=== PATIENT | female | born 1995 | race African-American/Black ===

== ENCOUNTER 2019-01-10 23:25 | Observation (INO) | payer SELFPAY ==
[2019-01-11 00:33] LABS: Hemoglobin 10.2 g/dL (12.0-16.0); Mean Corpuscular HGB CONC 32.1 g/dL (32.0-36.0); Mean Corpuscular Hemoglobin 22.3 pg (27.0-31.0); Mean Corpuscular Volume 69.4 fL (78.0-98.0); Mean Platelet Volume 9.9 fL (7.4-10.4); Platelet Count 301 thou/uL (130-400); RBC Distribution Width 15.3 % (11.5-14.5); Red Blood Cell (RBC) Count 4.56 mill/uL (4.20-5.40); White Blood Cell (WBC) Count 18.5 thou/uL (4.8-10.8)
[2019-01-11] MEDS ORDERED: Acetaminophen 500 MG TAB ONE (00:44)
[2019-01-11 00:49] LABS: Lymphocytes 6 % (21-51); MDiff Complete? YES; Microcytosis SLIGHT = 6-15 cells (100X) (0-5/hpf); Monocytes 5 % (0-10); Neutrophil 89 % (42-75)
[2019-01-11 00:52] LABS: ALT (SGPT) 12 U/L (8-55); AST (SGOT) 13 U/L (5-34); Albumin 3.6 g/dL (3.5-5.0); Alkaline Phosphatase 89 U/L (40-150); Anion Gap 9 mmol/L (10-20); BUN (Urea Nitrogen) 7 mg/dL (7.0-18.7); Bilirubin, Total 0.5 mg/dL (0.2-1.2); Calc. Creatinine Clearance 0 mL/min (70-130); Calcium 9.2 mg/dL (7.8-10.44); Carbon Dioxide 28 mmol/L (22-29); Chloride 106 mmol/L (98-107); Estimated GFR-MDRD Greater than 90; Globulin 4.2 g/dL (2.4-3.5); Glucose 144 mg/dL (70-105); Lipase 9 U/L (8-78); Potassium 3.8 mmol/L (3.5-5.1); Protein, Total 7.8 g/dL (6.0-8.3); Sodium 139 mmol/L (136-145)
[2019-01-11] MEDS ORDERED: Ondansetron PF 4 MG/2 ML Vial ONE (00:53)
[2019-01-11] MEDS ORDERED: Morphine 4 MG/ML VIAL ONE (00:53)
[2019-01-11 01:18] LABS: BHCG - Serum Negative (NEGATIVE); Pregs Control Background? CLEAR/WHITE (CLR/WHITE); Pregs Control Bar Appear? YES (CONTROL BAR)
[2019-01-11] MEDS ORDERED: Sodium Chloride 0.9% 100 ML ONE (03:14)
[2019-01-11] MEDS ORDERED: Piperacillin/Tazobactam 4.5 GM VIAL ONE (03:14)
[2019-01-11 04:02] LABS: Bilirubin Negative (Negative); Blood, Urine Trace (Negative); Clarity CLOUDY (Clear); Glucose, Urine (Dipstick) Negative (Negative); Leukocyte Large (Negative); Nitrite Positive (Negative); Protein, Urine (Dipstick) Negative (Neg-Trace); pH, Urine 5.5 (5.0-9.0)
[2019-01-11 04:05] LABS: Bacteria/HPF 4+ HPF (None Seen); Pathc Cast-AUWi Flag 0.95 (0-2.49)
[2019-01-11 04:06] LABS: Yeast-AUWi Flag 42.3 (0-25.0)
[2019-01-11 04:08] LABS: Specific Gravity, Urine 1.054 (1.002-1.036)
[2019-01-11 04:12] LABS: Hyaline Casts/LPF NONE SEEN LPF (0-3 Hyaline); Yeast-All Forms None Seen HPF (None Seen)
[2019-01-11] MEDS ORDERED: Ondansetron ODT 4 MG TAB SL PRN (04:15)
[2019-01-11] MEDS ORDERED: Morphine 4 MG/ML VIAL SLOW IVP PRN (04:15)
[2019-01-11] MEDS ORDERED: Ondansetron PF 4 MG/2 ML Vial IVP PRN (04:15)
[2019-01-11 04:23] VITALS: BMI 41.1
[2019-01-11] MEDS: Lactated Ringer's 1,000 ML IV SCH ×2 (04:58→12:17)
[2019-01-11] MEDS ORDERED: Morphine 2 MG/ML SYRINGE SLOW IVP PRN (07:32)
--- NOTE | 2019-01-11 08:35 | ULT ---
Sonogram right upper quadrant HISTORY: Right upper quadrant pain. FINDINGS: Gallbladder has a normal appearance. Common bile duct is 0.5 cm. Liver unremarkable without focal mass or intrahepatic biliary dilatation. No free fluid. IMPRESSION: Normal right upper quadrant sonogram.
[2019-01-11] MEDS: Pantoprazole 40 MG VIAL IVP SCH (08:39)
--- NOTE | 2019-01-11 08:41 | CT ---
PRELIMINARY REPORT/[facility]/EMERGENCY AFTER HOURS PROCEDURE EXAM: CT Abdomen and Pelvis With Contrast EXAM DATE/TIME: 01/11/2019 1:30 AM CLINICAL HISTORY: 23 years old, female; Abdominal pain; Patient HX: F23 presents to ED C/O constant abd pain x2 days. P T describes pain as sharp. PT reports constipation. PT denies similar symptoms. PT denies HX of UTI, reports pressure in abd when she urinates. Lmp approximately December 19, 2018. PT reports gestati onal diabetes while , . PT reports untreated hyperglycemia. PT reports she still has her gall bladder. TECHNIQUE: Imaging protocol: Axial computed tomography images of the abdomen and pelvis with intravenous contras t. Coronal reformatted images were created and reviewed. COMPARISON: No relevant prior studies available. FINDINGS: Lungs: The lung bases are clear. ABDOMEN: Liver: Unremarkable. Gallbladder and bile ducts: No definite gallbladder abnormality by CT. No biliary tree dilation. Pancreas: Unremarkable. Spleen: Unremarkable. Adrenals: Unremarkable. Kidneys and ureters: Unremarkable. Stomach and bowel: There are no CT findings to strongly suggest diverticulitis or colitis. Appendix: The appendix is borderline to mildly prominent in size with diameter of up to 6-7 mm. Possible mild thickening of the appendiceal wall. However, there are no significant surrounding inflammatory changes to definitely allow diagnosis of appendicitis at this time. Clinical correlation is needed in this case. If clinical findings are equi vocal, and appendicitis remains in the differential diagnosis, follow-up scanning may be useful, as clinical ly directed. Appropriate clinical follow up warranted, as early/mild appendicitis is not excluded, and could be possible with this CT appearance. PELVIS: Bladder: Unremarkable as visualized. Reproductive: An IUD is present within the uterus. The IUD appears malpositioned, lie in lower uterine segment rather than the fundus of the uterus. The stem of the IUD probably extends into the cervical canal. The left ovary contains a 17-18 mm dominant follicle versus very small cyst. Significance uncertain/unlikely due to small size. No cul-de-sac fluid. ABDOMEN and PELVIS: Intraperitoneal space: No free air, ascites, or bowel distention. Bones/joints: No significant acute finding. Soft tissues: No significant acute finding. Vasculature: No evidence for abdominal aortic aneurysm. Lymph nodes: No retroperitoneal adenopathy. Several borderline to mildly prominent inguinal lymph nodes bilaterally. IMPRESSION: 1. No free air or bowel distention. 2. Borderline size of the appendix, please see detailed discussion above. 3. An IUD is present. The IUD appears malpositioned, see above discussion. 4. The left ovary contains a 17-18 mm dominant follicle versus very small cyst. Significance uncertain/unlikely due to small size. No cul-de-sac fluid. 5. Other findings discussed above. Thank you for allowing us to participate in the care of your patient. Dictated and Authenticated by: Hudson Pappas MD 01/11/2019 2:43 AM Central Time ([place] & [place]) FINAL REPORT CT ABDOMEN AND PELVIS WITH CONTRAST: Date: 01/11/19 HISTORY: Abdominal pain. COMPARISON: None. FINDINGS: Lung bases are clear. No pericardial effusion. The intrauterine device is low. The appendix is upper limits of normal in size, measuring up to 6 mm, without periappendiceal inflammation. There are mildly distended loops of distal small bowel. IMPRESSION: Findings and impression are concordant with the preliminary report. Close clinical follow-up recommen ded.
[2019-01-11 08:53] LABS: #Lymphocytes 2.3 thou/uL (1.20-3.40); #Monocytes 1.1 thou/uL (0.11-0.59); #Neutrophils 12.6 thou/uL (1.40-6.50); %Eosinophils 0.2 % (0.0-10.0); %Lymphocytes 14.6 % (21.0-51.0); %Monocytes 6.7 % (0.0-10.0); %Neutrophils 78.5 % (42.0-75.0); Hemoglobin 9.3 g/dL (12.0-16.0); Mean Corpuscular HGB CONC 31.6 g/dL (32.0-36.0); Mean Corpuscular Hemoglobin 22.3 pg (27.0-31.0); Mean Corpuscular Volume 70.6 fL (78.0-98.0); Platelet Count 279 thou/uL (130-400); RBC Distribution Width 15.3 % (11.5-14.5); Red Blood Cell (RBC) Count 4.19 mill/uL (4.20-5.40)
[2019-01-11 09:21] LABS: Anion Gap 11 mmol/L (10-20); BUN (Urea Nitrogen) 6 mg/dL (7.0-18.7); Calc. Creatinine Clearance 209 mL/min (70-130); Calcium 8.9 mg/dL (7.8-10.44); Carbon Dioxide 25 mmol/L (22-29); Chloride 108 mmol/L (98-107); Estimated GFR-MDRD Greater than 90; Glucose 87 mg/dL (70-105); Potassium 3.5 mmol/L (3.5-5.1); Sodium 140 mmol/L (136-145)
[2019-01-11 11:51] LABS: Hemoglobin A1c 6.5 % (4.0-6.0)
--- NOTE | 2019-01-11 11:51 | HP ---
CHIEF COMPLAINT: Epigastric and right upper quadrant pain. HISTORY OF PRESENT ILLNESS: This is a 23-year-old female with a 3-day history of mid epigastric pain. No radiation. No nausea or vomiting. Subjective fevers. Last bowel movement yesterday. Last menstrual period December 19. No radiation of pain. She is a G3, P3. Her last child was delivered January of 2017. PAST MEDICAL HISTORY: Obesity, diabetes. She says she is supposed to be on insulin, but she cannot afford it. PAST SURGICAL HISTORY: Left wrist surgery, IUD placement. MEDICATIONS: She takes none. ALLERGIES: NO KNOWN DRUG ALLERGIES. SOCIAL HISTORY: She is single. 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 No tobacco. Occasional alcohol. FAMILY HISTORY: Diabetes. PHYSICAL EXAMINATION: VITAL SIGNS: Temperature 98.8, pulse 74, blood pressure 92/65. GENERAL: She is an obese female, lying still. She is awake, alert, and oriented. HEENT: No jaundice. LUNGS: Clear. HEART: Regular rate and rhythm. ABDOMEN: Obese, soft. She is mildly tender in the right upper quadrant and midepigastrium. Really cannot express much on right lower quadrant. LABORATORY DATA: Her white count is 18.5, H and H are 10 and 31, platelet count 301. Electrolytes are fine. Glucose is 144. Creatinine is 0.87. Liver function tests are normal. HCG negative. IMAGING STUDIES: She had a CT scan that shows she has an IUD in her uterus. Her uterus has a lot of inflammation around it. They said that her appendix was somewhat enlarged, but they did not see any periappendiceal inflammation. They did not use contrast. PLAN: So, the plan is, PROGRAM HOST consultation right upper quadrant ultrasound. Continue IV antibiotics. Job ID: [id number]
[2019-01-11] MEDS ORDERED: Piperacillin/Tazobactam 4.5 GM in Sodium Chloride 0.9% 100 ML IVPB SCH (12:00)
[2019-01-11] MEDS: Piperacillin/Tazobactam 3.375 GM in Sodium Chloride 0.9% 100 ML IVPB SCH ×2 (12:16→17:49)
--- NOTE | 2019-01-11 17:46 | CON ---
DATE OF CONSULTATION: 01/11/2019 REASON FOR CONSULTATION: Abdominal pain and malpositioned IUD. HISTORY OF PRESENT ILLNESS: The patient is a 23-year-old female, who was admitted late last night for abdominal pain and admitted to Dr. Ghosh. Imaging demonstrated little evidence of appendicitis, but did show an IUD that appeared to be malpositioned, with the base of the IUD possibly protruding from the cervical os. The patient reports that the IUD was placed about a year and a half ago. She reports monthly periods lasting about 3 days. She does admit while she does have pain in her upper abdomen, she is also having pain in her lower abdomen. The patient denies any previous use of control. She is sexually active. She has noted change in her discharge in odor and consistency. Denies any history of gonorrhea or chlamydia or other sexually transmitted infections. PAST MEDICAL HISTORY: Significant for diabetes, unmanaged and uncontrolled. The patient does not have a provider to help her with this nor she is on any medications. She does report she was diagnosed with diabetes when she presented to the emergency room about a year ago with her blood sugars "in the thousands" and was told that she was almost to the point of being in a diabetic coma. PAST SURGICAL HISTORY: Negative. SOCIAL HISTORY: Denies drug, alcohol, or tobacco use. ALLERGIES: NO KNOWN DRUG ALLERGIES. PHYSICAL EXAMINATION: VITAL SIGNS: Temperature 97.5, pulse 61, respiratory rate 18 saturating 96% on room air, and blood pressure 98/66. GENERAL: She appears to be in no acute distress. She is alert, oriented, cooperative, and pleasant to interact with. ABDOMEN: Soft. She does have some tenderness to palpation in her upper epigastric region and suprapubically. Vulva is without masses, lesions, or erythema. Vagina is moist. There is definitely distinct odor reminiscent of infection. CERVICAL: Uterus is quite tender. Strings are palpable through the external os. It is also palpable is the base of the IUD. With that said, the patient agreed for just removal at that point, I was able to grab the strings and just pull and remove the IUD without difficulty. ASSESSMENT AND PLAN: The patient is a 23-year-old female with a malpositioned intrauterine contraceptive device, possible pelvic inflammatory disease. I do recommend when the patient is discharged home to continue doxycycline 100 mg twice a day for a total of 7 days of antibiotic use. I also have written a prescription for oral contraceptive pills for the patient to take until she is able to establish care with an OB provider for long-term control. I have stressed the importance that the patient be taking the pills every day as even just skipping a couple of pills could put her at risk for . The patient reports so the Case Management is assisting her and reestablishing the source of funding for her medical care. Women[employer] Medicaid, if she were to qualify for, would cover control options as would traditional Medicaid. Given the patient's diabetic reported history, I have ordered A1c. Should this be quite elevated, I would recommend consultations family Medicine to review the best approach at this point. Should the patient get with elevated A1c, she is at increased risk for defects and poor outcomes. I have ordered a GC chlamydia, which we will follow up with when it becomes available. We will be signing off at this point. Please contact us again should we be needed. We will be happy to re-evaluate. Job ID: [id number] [email or web address]
[2019-01-11] MEDS ORDERED: Ketorolac Tromethamine 30 MG/ML VIAL IVP PRN (19:39)
[2019-01-11] MEDS: Doxycycline 100 MG CAP PO SCH (19:51)
[2019-01-12] MEDS: Piperacillin/Tazobactam 3.375 GM in Sodium Chloride 0.9% 100 ML IVPB SCH ×3 (00:30→13:46)
[2019-01-12 05:52] LABS: #Eosinphils 0.2 thou/uL (0.0-0.7); #Lymphocytes 2.4 thou/uL (1.20-3.40); #Monocytes 0.7 thou/uL (0.11-0.59); %Basophils 0.3 % (0.0-1.0); %Eosinophils 1.5 % (0.0-10.0); %Lymphocytes 23.4 % (21.0-51.0); %Monocytes 6.8 % (0.0-10.0); %Neutrophils 67.9 % (42.0-75.0); Mean Corpuscular HGB CONC 30.9 g/dL (32.0-36.0); Mean Corpuscular Hemoglobin 21.6 pg (27.0-31.0); Mean Corpuscular Volume 70.1 fL (78.0-98.0); Mean Platelet Volume 10.1 fL (7.4-10.4); Platelet Count 286 thou/uL (130-400); RBC Distribution Width 15.3 % (11.5-14.5); Red Blood Cell (RBC) Count 4.18 mill/uL (4.20-5.40); White Blood Cell (WBC) Count 10.2 thou/uL (4.8-10.8)
[2019-01-12 05:59] LABS: Anion Gap 12 mmol/L (10-20); BUN (Urea Nitrogen) 6 mg/dL (7.0-18.7); Calc. Creatinine Clearance 204 mL/min (70-130); Calcium 8.6 mg/dL (7.8-10.44); Carbon Dioxide 25 mmol/L (22-29); Chloride 105 mmol/L (98-107); Estimated GFR-MDRD Greater than 90; Glucose 72 mg/dL (70-105); Potassium 3.5 mmol/L (3.5-5.1); Sodium 138 mmol/L (136-145)
[2019-01-12] MEDS: Pantoprazole 40 MG VIAL IVP SCH (09:28)
[2019-01-12] MEDS: Doxycycline 100 MG CAP PO SCH (09:28)
[2019-01-12 11:44] VITALS: BP 116/78; TEMP 98.8
--- NOTE | 2019-01-12 12:12 | DIS ---
DATE OF ADMISSION: 01/11/2019 DATE OF DISCHARGE: DISCHARGE DIAGNOSIS: Pelvic inflammatory disease, malpositioned intrauterine device with infection. PROCEDURES DURING ADMISSION: CT scan of abdomen and pelvis, IV antibiotics, removal of IUD. HOSPITAL COURSE: The patient was admitted, started on IV antibiotics. CLAIM SPECIALIST was consulted. She was found to have pelvic inflammatory disease. Her IUD was removed as it was not in the right spot. She got better with antibiotics. Recommendation is to keep her on doxycycline. She should follow up with Gynecology in 10 to 14 days. She has been informed that she is at risk for and should use protection. Job ID: [id number]
[2019-01-17 21:56] LABS: Chlam.trachomatis by PCR,Urine DETECTED (NotDetected)
== END 2019-01-12 14:30 | disposition home or self-care (01) ==
LOC: ERS 23:25 → SURG B 01-11 03:21
PROVIDERS: ADMIT Surgery; ATTEND Surgery
PROC: 0UPD7HZ Removal of Contraceptive Device from Uterus and Cervix, Via Natural or Artificial Opening (ICD-10-PCS; principal; 2019-01-11)
DX: T83.32XA Displacement of intrauterine contraceptive device, initial encounter (principal); T83.69XA Infection and inflammatory reaction due to other prosthetic device, implant and graft in genital tract, initial encounter; N73.9 Female pelvic inflammatory disease, unspecified; E11.9 Type 2 diabetes mellitus without complications; E66.9 Obesity, unspecified; Z68.41 Body mass index [BMI] 40.0-44.9, adult; Z98.890 Other specified postprocedural states
CPT/HCPCS: 36415; 36416; 74177; 76705; 80048; 80053; 81003; 81015; 83036; 83690; 84702; 84703; 85025; 87491; 87591; 96361; 96365; 96366; 96375; 96376; C9113; G0378; J1885; J2270; J2405; J2543; J3490

== ENCOUNTER 2022-02-16 08:42 | Emergency (ER) | payer SELFPAY ==
[2022-02-16 09:10] LABS: Bacteria/HPF 1+ HPF (None Seen); Bilirubin Negative (Negative); Blood, Urine Negative (Negative); Clarity Clear (Clear); Glucose, Urine (Dipstick) Normal (Negative); Ketone, Urine Negative (Negative); Leukocyte 250 Leu/uL (Negative); Nitrite Negative (Negative); Protein, Urine (Dipstick) Negative (Neg-Trace); RBC/HPF 0-3 HPF (0-3); Specific Gravity, Urine 1.026 (1.002-1.036); Urobilinogen Normal mg/dL (Less than 2); WBC/HPF 21-50 HPF (0-3); pH, Urine 5.5 (5.0-9.0)
[2022-02-16 09:11] LABS: Pregnancy Test - Urine (BHCG) Negative (Negative); Pregu Control Background? CLEAR/WHITE (CLR/WHITE); Pregu Control Bar Appear? YES (CONTROL BAR); Specific Gravity 1.026 (1.002-1.036)
== END 2022-02-16 09:40 | disposition home or self-care (01) ==
LOC: ERS 08:42
DX: N39.0 Urinary tract infection, site not specified (principal); E11.9 Type 2 diabetes mellitus without complications; F17.210 Nicotine dependence, cigarettes, uncomplicated
CPT/HCPCS: 81003; 81015; 81025; 99283

== ENCOUNTER 2023-02-04 05:57 | Emergency (ER) | payer SELFPAY ==
[2023-02-04] MEDS ORDERED: Ketorolac Tromethamine 30 MG/ML VIAL ONE (06:37)
== END 2023-02-04 07:01 | disposition home or self-care (01) ==
LOC: ERS 05:57
DX: K08.89 Other specified disorders of teeth and supporting structures (principal); K02.9 Dental caries, unspecified; E11.9 Type 2 diabetes mellitus without complications; F17.210 Nicotine dependence, cigarettes, uncomplicated
CPT/HCPCS: 96372; 99282; J1885

== ENCOUNTER 2023-06-19 17:42 | Emergency (ER) | payer SELFPAY ==
[2023-06-19 18:41] LABS: SARS-CoV-2 NAA Rapid Test Not Detected (NotDetected)
[2023-06-19] MEDS ORDERED: Acetaminophen 500 MG TAB ONE (19:06)
[2023-06-19] MEDS ORDERED: Ondansetron PF 4 MG/2 ML Vial ONE (19:34)
[2023-06-19 19:41] LABS: #Monocytes 1.6 thou/uL (0.11-0.59); #Neutrophils 10.7 thou/uL (1.40-6.50); %Basophils 0.2 % (0.0-1.0); %Eosinophils 0.1 % (0.0-10.0); %Lymphocytes 16.1 % (21.0-51.0); %Monocytes 10.5 % (0.0-10.0); %Neutrophils 72.6 % (42.0-75.0); Hematocrit 35.3 % (36.0-47.0); Hemoglobin 11.6 g/dL (12.0-16.0); Mean Corpuscular HGB CONC 32.9 g/dL (32.0-36.0); Mean Corpuscular Hemoglobin 23.9 pg (27.0-31.0); Mean Corpuscular Volume 72.8 fl (78.0-98.0); Mean Platelet Volume 10.8 fL (7.4-10.4); Platelet Count 322 10x3/uL (130-400); RBC Distribution Width 14.4 % (11.5-14.5); Red Blood Cell (RBC) Count 4.85 mill/uL (4.20-5.40); White Blood Cell (WBC) Count 14.7 10x3/uL (4.8-10.8)
[2023-06-19 20:03] LABS: ALT (SGPT) 9 U/L (8-55); AST (SGOT) 12 U/L (5-34); Albumin 3.6 g/dL (3.5-5.0); Alkaline Phosphatase 79 U/L (40-110); Anion Gap 14 mmol/L (10-20); BUN (Urea Nitrogen) 4 mg/dL (7.0-18.7); Bilirubin, Total 0.4 mg/dL (0.2-1.2); Calc. Creatinine Clearance 0 mL/min (70-130); Calcium 9.1 mg/dL (7.8-10.44); Carbon Dioxide 23 mmol/L (22-29); Chloride 101 mmol/L (98-107); Estimated GFR 113; Globulin 4.3 g/dL (2.4-3.5); Glucose 130 mg/dL (70-105); Lipase Less than 4 U/L (8-78); Potassium 3.4 mmol/L (3.5-5.1); Protein, Total 7.9 g/dL (6.0-8.3); Sodium 135 mmol/L (136-145)
[2023-06-19 20:05] LABS: CellaVision Operator ID lab.dlt; Platelet Adequacy Comment Platelets Normal; Polychromasia SLIGHT = 2-3 cells HPF (0-2)
[2023-06-19 21:18] LABS: Bacteria/HPF 4+ HPF (None Seen); Bilirubin Negative (Negative); Blood, Urine 2+ (Negative); CAUTI Indications for Culture Pelvic or flank pain; Clarity Extra Turbid (Clear); Glucose, Urine (Dipstick) Normal (Negative); Ketone, Urine Negative (Negative); Leukocyte 500 Leu/uL (Negative); Nitrite Negative (Negative); Pregnancy Test - Urine (BHCG) Negative (Negative); Pregu Control Background? CLEAR/WHITE (CLR/WHITE); Pregu Control Bar Appear? YES (CONTROL BAR); Protein, Urine (Dipstick) 100 mg/dL (Neg-Trace); Specific Gravity 1.006 (1.002-1.036); Specific Gravity, Urine 1.006 (1.002-1.036); Urobilinogen Normal mg/dL (Less than 2); WBC/HPF Greater than 50 HPF (0-3)
[2023-06-19 21:31] LABS: Urine Culture Reflex Yes Yes
[2023-06-19] MEDS ORDERED: Sodium Chloride 0.9% 100 ML ONE (22:27)
[2023-06-19] MEDS ORDERED: cefTRIAXone (ROCEPHIN) 1 GM VIAL ONE (22:27)
== END 2023-06-19 23:04 | disposition home or self-care (01) ==
LOC: ERS 17:42
DX: N10 Acute pyelonephritis (principal); F17.210 Nicotine dependence, cigarettes, uncomplicated; Z20.822 Contact with and (suspected) exposure to COVID-19
CPT/HCPCS: 36415; 74177; 80053; 81001; 81025; 83690; 85025; 87077; 87086; 87186; 96361; 96365; 96375; J0696; J2405; J3490